=== PATIENT | female | born 1970 | race African-American/Black ===

== ENCOUNTER 2016-08-09 18:32 | Emergency (ER) | payer SELFPAY ==
[~2016-08-09] VITALS: Ht 175.3 cm; Wt 132.4 kg
[2016-08-09 18:59] LABS: BASO # 0.1 x10^3/uL (0.0-0.2); BASO % 1 % (0-3); EOS % 2 % (0-3); HEMATOCRIT 39.6 % (36.0-47.0); HEMOGLOBIN 12.9 g/dL (12.0-15.5); LYMPH # 3.2 x10^3/uL (1.0-4.8); LYMPH % 59 % (24-48); MEAN CORPUSCULAR HEMOGLOBIN 30 pg (25-35); MEAN CORPUSCULAR HGB CONC 33 g/dL (31-37); MEAN CORPUSCULAR VOLUME 91 fL (79-100); MONO % 10 % (0-9); NEUT % 29 % (31-73); PLATELET COUNT 351 x10^3/uL (140-400); RED BLOOD COUNT 4.34 x10^6/uL (3.50-5.40); RED CELL DISTRIBUTION WIDTH 12.6 % (11.5-14.5); WHITE BLOOD COUNT 5.5 x10^3/uL (4.0-11.0)
[2016-08-09] MEDS ORDERED: ASPIRIN 81 MG TAB.CHEW PO ONE (19:00)
[2016-08-09 19:14] LABS: CALCIUM 9.2 mg/dL (8.5-10.1); CREATININE 0.8 mg/dL (0.6-1.0); POTASSIUM 4.8 mmol/L (3.5-5.1)
[2016-08-09 19:21] LABS: DIRECT BILIRUBIN 0.1 mg/dL (0.0-0.2); TOTAL BILIRUBIN 0.5 mg/dL (0.2-1.0); TOTAL PROTEIN 8.8 g/dL (6.4-8.2)
[2016-08-09 20:09] VITALS: BP 123/75
--- NOTE | 2016-08-09 20:09 | RAD ---
PROCEDURE AP chest radiograph. HISTORY Chest pain. COMPARISON None. FINDINGS Cardiac silhouette appears within normal limits for size. No pneumothorax or pleural effusion is seen. Left lung appears clear. There appear to be 3 rounded nodules or masses involving the right lung ranging in size from 2 to 4 centimeters. IMPRESSION Right pulmonary nodules and masses. Recommend correlation with patient history. Elective evaluation could be made with CT. Electronically signed by: Roberto Posey MD (Aug 09, 2016 20:08:06)
[2016-08-09] MEDS ORDERED: ASPI81TA2 PO (20:17)
--- NOTE | 2016-08-09 20:18 | PHYS DOC ---
Past Medical History Past Medical History: Arrhythmia, Asthma, Other Additional Past Medical Histor: rheumatic fever Past Surgical History: , Hysterectomy, Tubal ligation, Other Additional Past Surgical Histo: hernia Alcohol Use: None Drug Use: None Adult General Chief Complaint Chief Complaint: CHEST PAIN HPI HPI 45-year-old female presenting to the emergency department with left-sided chest pain that she states radiates to her shoulder. It is sharp nonradiating worse with inspiration and without alleviating factors. The patient's pain has been present for greater than 24 hours. She has a family history with one sister that has a history of blood clots. She denies a personal history of blood clots. No recent hemoptysis. She denies her pain being sudden in onset. She denies unilateral leg swelling. Family history of cardiac disease present. Otherwise the patient denies having diabetes hypertension hyperlipidemia and denies being a smoker. Review of systems is negative for shortness of breath abdominal pain nausea vomiting or diaphoresis. All other review of systems is negative unless otherwise noted in history of present illness. Review of Systems Review of Systems SEE ABOVE. Current Medications Current Medications Current Medications Medications (Trade) Dose Ordered Sig/Evangelina Start Time Stop Time Status Last Admin Dose Admin Aspirin (Children'S Aspirin) 324 mg 1X ONCE 08/09/16 19:00 08/09/16 19:01 DC 08/09/16 19:19 324 MG Allergies Allergies Allergies Coded Allergies Type Severity Reaction Last Updated Verified theophylline Allergy Intermediate 08/09/16 Yes Physical Exam Physical Exam Constitutional: Well developed, well nourished, no acute distress, non-toxic appearance. HENT: Normocephalic, atraumatic, bilateral external ears normal, oropharynx moist, no oral exudates, nose normal. [] Eyes: PERRLA, EOMI, conjunctiva normal, no discharge. Neck: Normal range of motion, no tenderness, supple, no stridor. [] Cardiovascular:Heart rate regular rhythm, no murmur Lungs & Thorax: Bilateral breath sounds clear to auscultation [] Abdomen: Bowel sounds normal, soft, no tenderness, no masses, no pulsatile masses. [] Skin: Warm, dry, no erythema, no rash. Back: No tenderness, no CVA tenderness. [] Extremities: No tenderness, no cyanosis, no clubbing, ROM intact, no edema. Neurologic: Alert and oriented X 3, normal motor function, normal sensory function, no focal deficits noted. [] Psychologic: Affect normal, judgement normal, mood normal. [] Current Patient Data Vital Signs Vital Signs Date Time Temp Pulse Resp B/P Pulse Ox O2 Delivery O2 Flow Rate FiO2 08/09/16 20:09 68 20 123/75 97 Room Air 08/09/16 18:40 97.7 97.7 Lab Values Laboratory Tests Test 08/09/16 18:45 White Blood Count 5.5x10^3/uL (4.0-11.0) Red Blood Count 4.34x10^6/uL (3.50-5.40) Hemoglobin 12.9g/dL (12.0-15.5) Hematocrit 39.6% (36.0-47.0) Mean Corpuscular Volume 91fL (79-100) Mean Corpuscular Hemoglobin 30pg (25-35) Mean Corpuscular Hemoglobin Concent 33g/dL (31-37) Red Cell Distribution Width 12.6% (11.5-14.5) Platelet Count 351x10^3/uL (140-400) Neutrophils (%) (Auto) 29% (31-73) L Lymphocytes (%) (Auto) 59% (24-48) H Monocytes (%) (Auto) 10% (0-9) H Eosinophils (%) (Auto) 2% (0-3) Basophils (%) (Auto) 1% (0-3) Neutrophils # (Auto) 1.6x10^3uL (1.8-7.7) L Lymphocytes # (Auto) 3.2x10^3/uL (1.0-4.8) Monocytes # (Auto) 0.5x10^3/uL (0.0-1.1) Eosinophils # (Auto) 0.1x10^3/uL (0.0-0.7) Basophils # (Auto) 0.1x10^3/uL (0.0-0.2) D-Dimer (Radha) 0.50ug/mlFEU (0.00-0.50) Sodium Level 144mmol/L (136-145) Potassium Level 4.8mmol/L (3.5-5.1) Chloride Level 105mmol/L (98-107) Carbon Dioxide Level 31mmol/L (21-32) Anion Gap 8 (6-14) Blood Urea Nitrogen 11mg/dL (7-20) Creatinine 0.8mg/dL (0.6-1.0) Estimated GFR (Cockcroft-Gault) 93.0 Glucose Level 90mg/dL (70-99) Calcium Level 9.2mg/dL (8.5-10.1) Total Bilirubin 0.5mg/dL (0.2-1.0) Direct Bilirubin 0.1mg/dL (0.0-0.2) Aspartate Amino Transferase (AST) 30U/L (15-37) Alanine Aminotransferase (ALT) 21U/L (14-59) Alkaline Phosphatase 132U/L (46-116) H Troponin I Quantitative < 0.017ng/mL (0.000-0.055) IN-Ilo-E-Type Natriuretic Peptide 14pg/mL (0-124) Total Protein 8.8g/dL (6.4-8.2) H Albumin 4.0g/dL (3.4-5.0) Lipase 143U/L (73-393) Laboratory Tests 08/09/16 18:45 Laboratory Tests 08/09/16 18:45 EKG EKG [ EKG shows sinus rhythm with a regular rate. [place] leftward. Intervals within normal limits. ST segments congruent Radiology/Procedures Radiology/Procedures [] Course & Med Decision Making Course & Med Decision Making Pertinent Labs and Imaging studies reviewed. (See chart for details) [] 45-year-old female presenting to the emergency department today with chest pain present for greater than 24 hours. On examination the patient's vital signs afebrile with a normal heart rate. Saturating well on room air. Physical exam was unremarkable. EKG unremarkable. Blood work obtained which was unremarkable. D-dimer right at the upper range of normal. Not tachycardic. Not hypoxic. Chest x-ray showed pulmonary nodule versus masses present. I printed off the radiograph and she'll the patient. I recommended she follow up with her primary care physician over the next 2-[address] to follow-up on this. She demonstrated verbal understanding. I also gave her our cardiologists name and number to follow up with over the next 2-3 days for her chest pain. Dragon Disclaimer Dragon Disclaimer This electronic medical record was generated, in whole or in part, using a voice recognition dictation system. Departure Departure Impression: Primary Impression: Chest pain Additional Impression: Pulmonary nodule Disposition: HOME, SELF-CARE Condition: STABLE Referrals: NO PCP (PCP) AYDE SAUER MD, PRATIP B MD Patient Instructions: Chest Pain (Nonspecific), Pulmonary Nodule, [id number] Additional Instructions: Thank you for allowing us to participate in your care today. Followup with your primary care physician in 3 days to follow up on pulm nodules. If you do not have a primary care provider you can ask for a list of our primary care providers. Return to the emergency department you have any new or concerning findings. This should be evaluated by the primary care physician and any necessary consulting services for continued management within a few days after discharge. Return to emergency room if you have any new or concerning symptoms including but not limited to fever, chills, nausea, vomiting, intractable pain, any new rashes, chest pain, shortness of air, uncontrolled bleeding, difficulty breathing, and/or vision loss. Scripts Aspirin 81 Mg Tab.chew1 Tab PO DAILY #14 TAB Ref 3 Prov:LAURA KNOX MD 08/09/16 Problem Qualifiers LAURA KNOX MD Aug 09, 2016 20:17
--- NOTE | 2016-08-10 06:40 | EKG ---
[facility] [address] [place] [address] Test Date: 2016-08-09 Test Time: 18:41:29 Pat Name: INDIRA MARTINEZ Department: Room: Gender: F Direct Care Counselor: : 1970 Requested By: LAURA KNOX Order Number: [id number] Reading MD: Measurements Intervals [place] Rate: 71 P: 49 AL: 160 QRS: 3 QRSD: 94 T: 36 QT: 384 QTc: 422 Interpretive Statements SINUS RHYTHM LEFT ATRIAL ABNORMALITY ABNORMAL ECG RI6.01 No previous ECG available for comparison
== END 2016-08-09 20:32 | disposition home or self-care (01) ==
LOC: ER 18:32
DX: R07.9 Chest pain, unspecified (principal); R91.1 Solitary pulmonary nodule; J45.909 Unspecified asthma, uncomplicated; Z88.8 Allergy status to other drugs, medicaments and biological substances
CPT/HCPCS: 36415; 71010; 80048; 80076; 83690; 83880; 84484; 85027; 85379; 93005; 99285-25